=== PATIENT | male | born 1975 | race Caucasian/White ===

== ENCOUNTER 2019-09-20 08:55 | Observation (INO) | payer BC ==
[2019-09-20] MEDS ORDERED: NORMAL SALINE 1000 ML 1,000 ML IV ONE (09:36)
[2019-09-20 09:51] LABS: ABSOLUTE EOSINOPHILS # (AUTO) 0.2 10^3/uL (0.0-0.6); ABSOLUTE LYMPHOCYTES (AUTO) 1.4 10^3/uL (0.5-4.7); ABSOLUTE MONOCYTES (AUTO) 1.1 10^3/uL (0.1-1.4); ABSOLUTE NEUT (AUTO) 4.1 10^3/uL (1.7-8.2); BASOPHILS % (AUTO) 0.3 % (0-2); EOSINOPHILS % (AUTO) 2.9 % (0-6); HEMATOCRIT 46.4 % (37.9-51.0); HEMOGLOBIN 16.2 g/dL (13.5-17.0); LYMPHOCYTES % (AUTO) 20.7 % (13-45); MEAN CORPUSCULAR HEMOGLOBIN 29.8 pg (27.0-33.4); MEAN CORPUSCULAR HGB CONC 34.9 g/dL (32.0-36.0); MEAN CORPUSCULAR VOLUME 85 fl (80-97); MONOCYTES % (AUTO) 15.9 % (3-13); PLATELET COUNT 386 10^3/uL (150-450); RED BLOOD COUNT 5.43 10^6/uL (4.35-5.55); RED CELL DISTRIBUTION WIDTH 12.8 % (11.5-14.0); SEGMENTED NEUTROPHILS % (AUTO) 60.2 % (42-78); TOTAL CELLS COUNTED % (AUTO) 100 %; WHITE BLOOD COUNT 6.9 10^3/uL (4.0-10.5)
--- NOTE | 2019-09-20 10:02 | ER Document Report ---
Entered by ANDRES CARRIZALES SCRIBE 09/20/19 0936 Acting as scribe for:STORM GRISSOM MD ED GI/ - General Mode of Arrival: Ambulatory Information source: Patient - Related Data Home Medications: Lisinopril <STORM GRISSOM - Last Filed: 09/20/19 15:45> <MAINEMERYL Claudia - Last Filed: 09/21/19 01:10> - General Chief Complaint: Abdominal Pain Stated Complaint: ABDOMINAL PAIN Time Seen by Provider: 09/20/19 09:26 Notes: This 43 year old male patient presents to the ED today with complaints of abdominal pain that began x2 days ago. Patient describes the pain as constant and that his abdomen was tender all day. Patient notes that he consumed a little bit of food around 5:00 that evening, but the symptoms worsened, especially while laying down and sitting. Patient states that around midnight, he was nauseous and had x3 vomiting episodes which relieved the pressure, but not the pain. Patient denies eating anything else since onset or using the restroom. Patient reports that he has drank 3 bottles of water prior to arrival. The patient was seen here in 2011 with what looked like a partial small bowel obstruction. He was treated with IV fluids and GI rest, but did not get an NG tube at that time. Past surgical history is significant for a cholecystectomy 13 years ago. (STORM GRISSOM) - Related Data Allergies/Adverse Reactions: No Known Allergies Allergy (Unverified 08/26/12 09:50) Past Medical History - General Information source: Patient - Social History Smoking Status: Current Every Day Smoker Cigarette use (# per day): Yes - 1 ppd Family History: Reviewed & Not Pertinent Patient has suicidal ideation: No Patient has homicidal ideation: No - Past Medical History Cardiac Medical History: Reports: Hx Hypertension, Hx Heart Murmur - as child Past Surgical History: Reports: Hx Cholecystectomy - x13 years ago, Hx Oral Surgery - Immunizations Immunizations up to date: No Hx Diphtheria, Pertussis, Tetanus Vaccination: Yes <STORM GRISSOM - Last Filed: 09/20/19 15:45> Review of Systems - Review of Systems Constitutional: No symptoms reported EENT: No symptoms reported Cardiovascular: No symptoms reported Respiratory: No symptoms reported Gastrointestinal: See HPI, Abdominal pain, Nausea, Vomiting Genitourinary: See HPI, Retention Male Genitourinary: No symptoms reported Musculoskeletal: No symptoms reported Skin: No symptoms reported Hematologic/Lymphatic: No symptoms reported Neurological/Psychological: No symptoms reported -: Yes All other systems reviewed and negative <STORM GRISSOM - Last Filed: 09/20/19 15:45> Physical Exam - General General appearance: Appears well, Alert - HEENT Head: Normocephalic, Atraumatic Eyes: Normal Pupils: PERRL Mucous membranes: Dry - Respiratory Respiratory status: No respiratory distress Chest status: Nontender Breath sounds: Normal Chest palpation: Normal - Cardiovascular Rhythm: Regular Heart sounds: Normal auscultation Murmur: No - Abdominal Inspection: Normal Distension: Distended Bowel sounds: Hypoactive - decreased bowel sounds Tenderness: Tender - epigrastric and hypogastric musculature tenderness with palpation Organomegaly: No organomegaly - Back Back: Normal, Nontender - Extremities General upper extremity: Normal inspection General lower extremity: Normal inspection - Neurological Neuro grossly intact: Yes - Psychological Associated symptoms: Normal affect, Normal mood - Skin Skin Temperature: Warm Skin Moisture: Dry Skin Color: Normal <STORM GRISSOM - Last Filed: 09/20/19 15:45> - Vital signs Vitals: Temp Pulse Resp BP Pulse Ox 97.9 F 101 H 16 145/91 H 98 09/20/19 08:59 09/20/19 08:59 09/20/19 08:59 09/20/19 08:59 09/20/19 08:59 Course - Laboratory Result Diagrams: 09/20/19 09:36 09/20/19 09:36 - Diagnostic Test Radiology reviewed: Image reviewed - Acute abdominal series shows dilated loops of small bowel with multiple air-fluid levels. - Consults Dr. Montalvo Time consulted: 13:40 Consulted provider: other - Request we try letting the patient drink a bottle of magnesium citrate, and then 5 glasses of water, and walking around to see if it will stimulate the bowel. - Transfer of Care Care transferred to following provider: Dr. Owen <STORM GRISSOM - Last Filed: 09/20/19 15:45> - Laboratory Result Diagrams: 09/20/19 09:36 09/20/19 09:36 <MERYL OWEN - Last Filed: 09/21/19 01:10> - Re-evaluation Re-evalutation: 09/20/19 13:50 NG tube suction produced about 600 mL's of a dark thin liquid. Gastroccult testing will be done. 09/20/19 14:19 Gastroccult is positive, the liquid looked like it most likely would be. I discussed this with Dr. Montalvo, based on these findings, the mag citrate challenge will not be done. He will have an oral and IV contrast CT scan of the abdomen and pelvis. (STORM GRISSOM) 09/20/19 09:01 pt reports he was nauseous in radiology, but feels better once hooked back up to LIWS. ordered 1L LR @ 150cc/hr. output from NG once back on suction unchanged from initial output earlier in day after NG initially placed. sgy attending, Dr. Montalvo in OR, but will see as consult, requests adm to hospitalist service. dr. ricci adm to tele. (MERYL OWEN) - Vital Signs Vital signs: Temp Pulse Resp BP Pulse Ox 98.1 F 81 17 139/76 H 93 09/21/19 00:05 09/21/19 00:05 09/21/19 00:05 09/21/19 00:05 09/21/19 00:05 - Laboratory Laboratory results interpreted by me: 09/20/19 09/20/19 09/20/19 09:36 09:36 10:26 Charles % (Auto) 15.9 H Chloride 97 L Glucose 113 H Total Bilirubin 2.0 H Urine Blood SMALL H - Transfer of Care Notes: 09/20/19 15:[address] at 1700, then call Dr. Montalvo with results. (STORM GRISSOM) Discharge <STORM GRISSOM - Last Filed: 09/20/19 15:45> - Discharge Admitting Provider: Renny (Hospitalist) Unit Admitted: Telemetry <MERYL OWEN - Last Filed: 09/21/19 01:10> - Discharge Clinical Impression: Small bowel obstruction Condition: Fair Disposition: ADMITTED INPATIENT Scribe Attestation: 09/20/19 14:47 I personally performed the services described in the documentation, reviewed and edited the documentation which was dictated to the scribe in my presence, and it accurately records my words and actions. (STORM GRISSOM) I personally performed the services described in the documentation, reviewed and edited the documentation which was dictated to the scribe in my presence, and it accurately records my words and actions.
[2019-09-20 10:12] LABS: ALBUMIN 4.5 g/dL (3.5-5.0); ALKALINE PHOSPHATASE 66 U/L (38-126); ANION GAP 14 (5-19); ASPARTATE AMINO TRANSFERASE 21 U/L (17-59); BILIRUBIN,DIRECT 0.2 mg/dL (0.0-0.4); BLOOD UREA NITROGEN 16 mg/dL (7-20); CALCIUM 9.2 mg/dL (8.4-10.2); CARBON DIOXIDE 27 mmol/L (22-30); CHLORIDE 97 mmol/L (98-107); GLUCOSE 113 mg/dL (75-110); POTASSIUM 3.9 mmol/L (3.6-5.0); TOTAL PROTEIN 7.6 g/dL (6.3-8.2)
[2019-09-20] MEDS ORDERED: RINGERS SOLUTION,LACTATED 1,000 ML IV ONE ×2 (10:19→19:43)
--- NOTE | 2019-09-20 10:30 | RADIOLOGY REPORT (SQ) ---
EXAM DESCRIPTION: ACUTE ABDOMEN SERIES COMPLETED DATE/TIME: 09/20/2019 10:00 am REASON FOR STUDY: Suspect bowel obstruction COMPARISON: Abdominal films 08/28/2012, 08/27/2012, 08/26/2012 NUMBER OF VIEWS: Three views. TECHNIQUE: Frontal chest, supine abdomen and upright abdomen radiographic images acquired. LIMITATIONS: None. FINDINGS: CHEST: Lungs clear of infiltrates. Cardiac silhouette size, amalia unremarkable. FREE AIR: None. No abnormal gas collections. BOWEL GAS PATTERN: Air-fluid level in the stomach. Air-fluid levels in dilated small bowel loops in the mid abdomen. Colon decompressed. Findings are worrisome for a distal small bowel obstruction. Ileus is possible but considered less likely. Findings discussed with Dr. Lui in the emergency allyssa m. CALCIFICATIONS: No suspicious calcifications. HARDWARE: None in the abdomen. SOFT TISSUES: No gross mass or suggestion of organomegaly. BONES: No acute fracture. No worrisome bone lesions. OTHER: No other significant finding. IMPRESSION: Air-fluid levels in distended stomach and small bowel worrisome for distal small bowel o bstruction. TECHNICAL DOCUMENTATION: JOB ID: [id number] [employer]- All Rights Reserved Reading location - IP/workstation name: [email or web address]
[2019-09-20 10:39] LABS: APPEARANCE,URINE CLEAR; BILIRUBIN,URINE NEGATIVE (NEGATIVE); COLOR,URINE YELLOW; GLUCOSE, URINE NEGATIVE (NEGATIVE); KETONES,URINE NEGATIVE (NEGATIVE); LEUKOCYTE ESTERASE,URINE NEGATIVE (NEGATIVE); NITRITE,URINE NEGATIVE (NEGATIVE); PROTEIN,URINE NEGATIVE (NEGATIVE); URINE SPECIFIC GRAVITY 1.005; UROBILINOGEN,URINE NEGATIVE mg/dL (<2.0)
[2019-09-20] MEDS ORDERED: ONDANSETRON HCL INJ/PF 4 MG/2 ML SDV ONE (11:08)
[2019-09-20] MEDS ORDERED: ONDANSETRON HCL INJ/PF 4 MG/2 ML SDV IV ONE ×2 (11:11→13:49)
[2019-09-20] MEDS ORDERED: LIDOCAINE 2% VISCOUS SOLN 20 ML UDCUP PO ONE (13:48)
[2019-09-20] MEDS ORDERED: MAG HYDROX/AL HYDROX/SIMETH SUSP 30 ML UDCUP PO ONE (13:48)
[2019-09-20] MEDS: MAGNESIUM CITRATE 296 ML BOTTLE PO ONE ×2 (14:07→14:33)
--- NOTE | 2019-09-20 17:47 | RADIOLOGY REPORT (SQ) ---
EXAM DESCRIPTION: CT ABD/PELVIS WITH IV ORAL COMPLETED DATE/TIME: 09/20/2019 5:22 pm REASON FOR STUDY: Dilated loops sm bowel,multiple A-F levels, heme + COMPARISON: None. TECHNIQUE: CT scan of the abdomen and pelvis performed using helical scanning technique with dynamic intravenous contrast injection. Oral contrast. Images reviewed with lung, soft tissue, and bone win dows. Reconstructed coronal and sagittal MPR images reviewed. Delayed images for evaluation of the ur inary system also acquired. All images stored on PACS. All CT scanners at this facility use dose modulation, iterative reconstruction, and/or weight based d osing when appropriate to reduce radiation dose to as low as reasonably achievable (ALARA). [facility]: Dose Right [facility]: CareDose [facility]: Dose Right [facility]: Teradose 4D [facility]: [employer] CONTRAST TYPE AND DOSE: contrast/concentration: Isovue 350.00 mg/ml; Total Contrast Delivered: 100.0 ml; Total Saline Delivered: 72.0 ml RENAL FUNCTION: BUN 16 creatinine 0.89 RADIATION DOSE: CT Rad equipment meets quality standard of care and radiation dose reduction techniq ues were employed. CTDIvol: 17.4 - 19.2 mGy. DLP: 2370 mGy-cm.. LIMITATIONS: None. FINDINGS: LOWER CHEST: No significant findings. No nodules or infiltrates. LIVER: Normal size. No masses. No dilated ducts. SPLEEN: Normal size. No focal lesions. PANCREAS: No masses. No significant calcifications. No adjacent inflammation or peripancreatic fluid collections. Pancreatic duct not dilated. GALLBLADDER: Surgically absent. ADRENAL GLANDS: No significant masses or asymmetry. RIGHT KIDNEY AND URETER: No solid masses. No significant calcifications. No hydronephrosis or hyd roureter. LEFT KIDNEY AND URETER: No solid masses. No significant calcifications. No hydronephrosis or hydr oureter. AORTA AND VESSELS: No aneurysm. No dissection. Renal arteries, SMA, celiac without stenosis. RETROPERITONEUM: No retroperitoneal adenopathy, hemorrhage or masses. BOWEL AND PERITONEAL CAVITY: Mildly dilated loops of small bowel are present. The distal ileum is of normal caliber. Mild diverticulosis in the descending colon. APPENDIX: Normal. PELVIS: Cannot exclude a small mucosal filling defect in the left in the bladder. See image 97 serie s 5. ABDOMINAL WALL: No masses. No hernias. BONES: No significant or acute findings. OTHER: No other significant finding. IMPRESSION: Distal small bowel obstruction. Mild diverticulosis coli. Cannot exclude a small bladd er wall mass on the left. TECHNICAL DOCUMENTATION: JOB ID: [id number] Quality ID # [id number]: Final reports with documentation of one or more dose reduction techniques (e.g., Au tomated exposure control, adjustment of the mA and/or kV according to patient size, use of iterative reconstruction technique) 2010 [employer]- All Rights Reserved Reading location - IP/workstation name: [email or web address]
[2019-09-20] MEDS ORDERED: ONDANSETRON HCL INJ/PF 4 MG/2 ML SDV IV PRN (21:26)
[2019-09-20] MEDS ORDERED: ACETAMINOPHEN 650 MG SUPP.RECT PR PRN (21:26)
[2019-09-20] MEDS ORDERED: IPRATROPIUM/ALBUTEROL 0.5-2.5 MG/3 ML AMPUL NEB PRN (21:26)
[2019-09-20] MEDS ORDERED: NORMAL SALINE 1000 ML 1,000 ML IV SCH (21:30)
[2019-09-20] MEDS: HEPARIN SOD (PORCINE) 5,000 UNIT/ML 1 ML VIAL SUBCUT SCH (23:21)
--- NOTE | 2019-09-20 23:23 | PDOC CONSULTATION ---
Consultation Consult Date: 09/20/19 Provider Consulted: MITCHELL FLORIAN History of Present Illness Admission Date/PCP: 09/20/19 21:28 Patient complains of: Abdominal distention, pain, and nausea vomiting History of Present Illness: ANTIONETTE BERNABE JR is a 43 year old male Patient is a morbidly obese 43-year-old male with a 3-day history of abdominal distention, nausea vomiting, abdominal pain. He presented to the emergency room due to worsening of the above symptoms. He underwent a CT scan abdomen pelvis with IV and oral contrast which demonstrated possible small bowel mechanical obstruction. However, since the test has been done the patient reports recurrence of flatus and a small amount of liquid stools. He feels much better, his abdomen is less distended and the left knee is nontender. The patient reports history of similar symptoms about 7 years ago when he presented to the emergency room and was treated conservatively with resolution of the symptoms. Past Medical History Cardiac Medical History: Reports: Hypertension, Heart Murmur - as child Denies: Myocardial Infarction Pulmonary Medical History: Denies: Asthma, Tuberculosis Neurological Medical History: Denies: Seizures GI Medical History: Denies: Hepatitis, Hiatal Hernia Hematology: Denies: Anemia, Sickle Cell Disease Past Surgical History Past Surgical History: Reports: Cholecystectomy - x13 years ago Denies: Pacemaker Social History Smoking Status: Current Every Day Smoker Hx Recreational Drug Use: No Hx Prescription Drug Abuse: No Family History Family History: Reviewed & Not Pertinent Parental Family History Reviewed: No Children Family History Reviewed: No Sibling(s) Family History Reviewed.: No Medication/Allergy Home Medications: Lisinopril [Prinivil 10 mg Tablet] 10 mg PO DAILY 09/20/19 Allergies/Adverse Reactions: No Known Allergies Allergy (Unverified 08/26/12 09:50) Physical Exam Vital Signs: Temp Pulse Resp BP Pulse Ox 97.9 F 101 H 15 110/75 93 09/20/19 09:18 09/20/19 09:18 09/20/19 19:01 09/20/19 19:00 09/20/19 19:01 Intake & Output 09/19/19 09/20/19 09/21/19 06:59 06:59 06:59 Intake Total 1999 Balance 1999 Weight 104.8 kg General appearance: PRESENT: no acute distress, morbidly obese Head exam: PRESENT: atraumatic Eye exam: PRESENT: EOMI Neck exam: PRESENT: full ROM Respiratory exam: PRESENT: clear to auscultation howie Cardiovascular exam: PRESENT: RRR GI/Abdominal exam: PRESENT: normal bowel sounds, soft, other - Not distended and not tender Rectal exam: PRESENT: deferred Extremities exam: PRESENT: full ROM Musculoskeletal exam: PRESENT: ambulatory, full ROM Neurological exam: PRESENT: alert, oriented to time, oriented to situation Psychiatric exam: PRESENT: appropriate affect Skin exam: PRESENT: warm Results Laboratory Results: 09/20/19 09:36 09/20/19 09:36 09/20/19 09/20/19 09/20/19 09:36 09:36 10:26 WBC 6.9 RBC 5.43 Hgb 16.2 Hct 46.4 MCV 85 MCH 29.8 MCHC 34.9 RDW 12.8 Plt Count 386 Seg Neutrophils % 60.2 Sodium 137.5 Potassium 3.9 Chloride 97 L Carbon Dioxide 27 Anion Gap 14 BUN 16 Creatinine 0.89 Est GFR ( Amer) > 60 Glucose 113 H Calcium 9.2 Total Bilirubin 2.0 H AST 21 Alkaline Phosphatase 66 Total Protein 7.6 Albumin 4.5 Lipase 65.7 Urine Color YELLOW Urine Appearance CLEAR Urine pH 7.0 Ur Specific [place] 1.005 Urine Protein NEGATIVE Urine Glucose (UA) NEGATIVE Urine Ketones NEGATIVE Urine Blood SMALL H Urine Nitrite NEGATIVE Ur Leukocyte Esterase NEGATIVE Urine WBC (Auto) 1 Urine RBC (Auto) 0 Impressions: Acute Abdomen Series 09/20/19 09:36 IMPRESSION: Air-fluid levels in distended stomach and small bowel worrisome for distal small bowel obstruction. Abdomen/Pelvis CT 09/20/19 14:18 IMPRESSION: Distal small bowel obstruction. Mild diverticulosis coli. Cannot exclude a small bladder wall mass on the left. Assessment & Plan - Diagnosis (1) partial mechanical small bowel obstructi Is this a current diagnosis for this admission?: Yes - Plan Summary Plan Summary: Assessment: 43-year-old obese male with a 3-day history abdominal pain, increased abdominal girth, nausea, vomiting CT scan of the abdomen pelvis with IV / oral contrast is a significant for a distal small bowel obstruction However, the CT scan of the abdomen pelvis also demonstrates the presence of stool and gas in the colon The patient reports resolution of most of his symptoms with flatus and liquid stools at this time following the CT scan of the abdomen pelvis Physical exam of the patient reveals a soft abdomen not distended, and not tender with normal bowel sounds Plan: Admit as per hospitalist service N.p.o. NG tube to low continuous suction Fluids Abdominal x-ray obstructive series in a.m. Clamp NG tube at 6 AM x4 hours If the symptoms are resolved, the nasogastric tube output is minimal following clamping, and the abdominal x-rays demonstrate improvement of the symptoms, the patient's diet can be advanced and he can be discharged to home
[2019-09-20] MEDS ORDERED: MAGNESIUM CITRATE 296 ML BOTTLE NG ONE (23:28)
[2019-09-21] MEDS ORDERED: INFLUENZA QUAD (6MOS+) 2019-20 VAC 0.5 ML SYR IM ONE (00:34)
[2019-09-21 00:38] VITALS: BP 139/76
--- NOTE | 2019-09-21 05:30 | PDOC H&P ---
History of Present Illness Admission Date/PCP: 09/20/19 21:28 Patient complains of: Abdominal pain and nausea History of Present Illness: ANTIONETTE BERNABE JR is a 43 year old male with past medical history of small bowel obstruction resolving spontaneously 7 years ago. Returns with abdominal pain and distention of the last 3 days worsening with nausea and vomiting prompting evaluation in the emergency department where he is found to have a small bowel obstruction without signs of decompensation. NG tube is placed resulting in 500 mL of gastric content. He is comfortable with IV antiemetics and referred to the hospitalist for admission. He denies recent change in medication regiment is otherwise felt well Past Medical History Cardiac Medical History: Reports: Hypertension, Heart Murmur - as child Denies: Myocardial Infarction Pulmonary Medical History: Denies: Asthma, Tuberculosis Neurological Medical History: Denies: Seizures GI Medical History: Denies: Hepatitis, Hiatal Hernia Psychiatric Medical History: Reports: Tobacco Dependency Hematology: Denies: Anemia, Sickle Cell Disease Past Surgical History Past Surgical History: Reports: Cholecystectomy - x13 years ago Denies: Pacemaker Social History Information Source: Patient Smoking Status: Current Every Day Smoker Cigarettes Packs Per Day: 1 Number of Years Smokin Last Time Smoked: 09/10/2019 Frequency of Alcohol Use: Rare Hx Recreational Drug Use: No Hx Prescription Drug Abuse: No - Advance Directive Resuscitation Status: Full Code Family History Family History: Hypertension Parental Family History Reviewed: Yes Children Family History Reviewed: Yes Sibling(s) Family History Reviewed.: Yes Medication/Allergy Home Medications: Lisinopril [Prinivil 10 mg Tablet] 10 mg PO DAILY 09/20/19 Allergies/Adverse Reactions: No Known Allergies Allergy (Unverified 08/26/12 09:50) Review of Systems Constitutional: ABSENT: chills, fever(s), headache(s), weight gain, weight loss Eyes: ABSENT: visual disturbances Ears: ABSENT: hearing changes Cardiovascular: ABSENT: chest pain, dyspnea on exertion, edema, orthropnea, palpitations Respiratory: ABSENT: cough, hemoptysis Gastrointestinal: ABSENT: abdominal pain, constipation, diarrhea, hematemesis, hematochezia, nausea, vomiting Genitourinary: ABSENT: dysuria, hematuria Musculoskeletal: ABSENT: joint swelling Integumentary: ABSENT: rash, wounds Neurological: ABSENT: abnormal gait, abnormal speech, confusion, dizziness, focal weakness, syncope Psychiatric: ABSENT: anxiety, depression, homidical ideation, suicidal ideation Endocrine: ABSENT: cold intolerance, heat intolerance, polydipsia, polyuria Hematologic/Lymphatic: ABSENT: easy bleeding, easy bruising Physical Exam Vital Signs: Temp Pulse Resp BP Pulse Ox 98.1 F 83 17 139/76 H 93 09/21/19 00:05 09/21/19 02:00 09/21/19 00:05 09/21/19 00:05 09/21/19 00:05 Intake & Output 09/19/19 09/20/19 09/21/19 11:59 11:59 11:59 Intake Total 1999 999 Balance 1999 1000 Weight 104.8 kg 104.3 kg General appearance: PRESENT: cooperative, mild distress, well-developed, well- nourished Head exam: PRESENT: atraumatic, normocephalic Eye exam: PRESENT: conjunctiva pink, EOMI, PERRLA. ABSENT: scleral icterus Ear exam: PRESENT: normal external ear exam Mouth exam: PRESENT: moist, tongue midline Neck exam: ABSENT: carotid bruit, JVD, lymphadenopathy, thyromegaly Respiratory exam: PRESENT: clear to auscultation howie. ABSENT: rales, rhonchi, wheezes Cardiovascular exam: PRESENT: RRR. ABSENT: diastolic murmur, rubs, systolic murmur Pulses: PRESENT: normal dorsalis pedis pul Vascular exam: PRESENT: normal capillary refill GI/Abdominal exam: PRESENT: diminished bowel sounds, distended, firm, hypoactive bowel sounds, soft. ABSENT: guarding, mass, normal bowel sounds, organolmegaly, rebound, tenderness Rectal exam: PRESENT: deferred Extremities exam: PRESENT: full ROM. ABSENT: calf tenderness, clubbing, pedal edema Neurological exam: PRESENT: alert, awake, oriented to person, oriented to place, oriented to time, oriented to situation, CN II-XII grossly intact. ABSENT: motor sensory deficit Psychiatric exam: PRESENT: appropriate affect, normal mood. ABSENT: homicidal ideation, suicidal ideation Skin exam: PRESENT: dry, intact, warm. ABSENT: cyanosis, rash Results Laboratory Results: 09/20/19 09:36 09/20/19 09:36 09/20/19 09/20/19 09/20/19 09:36 09:36 10:26 WBC 6.9 RBC 5.43 Hgb 16.2 Hct 46.4 MCV 85 MCH 29.8 MCHC 34.9 RDW 12.8 Plt Count 386 Seg Neutrophils % 60.2 Sodium 137.5 Potassium 3.9 Chloride 97 L Carbon Dioxide 27 Anion Gap 14 BUN 16 Creatinine 0.89 Est GFR ( Amer) > 60 Glucose 113 H Calcium 9.2 Total Bilirubin 2.0 H AST 21 Alkaline Phosphatase 66 Total Protein 7.6 Albumin 4.5 Lipase 65.7 Urine Color YELLOW Urine Appearance CLEAR Urine pH 7.0 Ur Specific [place] 1.005 Urine Protein NEGATIVE Urine Glucose (UA) NEGATIVE Urine Ketones NEGATIVE Urine Blood SMALL H Urine Nitrite NEGATIVE Ur Leukocyte Esterase NEGATIVE Urine WBC (Auto) 1 Urine RBC (Auto) 0 Impressions: Acute Abdomen Series 09/20/19 09:36 IMPRESSION: Air-fluid levels in distended stomach and small bowel worrisome for distal small bowel obstruction. Abdomen/Pelvis CT 09/20/19 14:18 IMPRESSION: Distal small bowel obstruction. Mild diverticulosis coli. Cannot exclude a small bladder wall mass on the left. Assessment and Plan - Diagnosis (1) Small bowel obstruction Is this a current diagnosis for this admission?: Yes Plan: NG decompression, symptomatic management, follow-up surgical consult (2) Abdominal pain Is this a current diagnosis for this admission?: Yes Plan: Secondary to #1, NG decompression, Toradol as needed - Time Time Spent with patient: 25-34 minutes - Inpatient Certification Medical Necessity: Need Close Monitoring Due to Risk of Patient Decompensation
[2019-09-21] MEDS: HEPARIN SOD (PORCINE) 5,000 UNIT/ML 1 ML VIAL SUBCUT SCH (06:01)
[2019-09-21 06:13] LABS: ALBUMIN 3.8 g/dL (3.5-5.0); ALKALINE PHOSPHATASE 58 U/L (38-126); ANION GAP 10 (5-19); ASPARTATE AMINO TRANSFERASE 18 U/L (17-59); BILIRUBIN,DIRECT 0.2 mg/dL (0.0-0.4); BILIRUBIN,TOTAL 1.4 mg/dL (0.2-1.3); BLOOD UREA NITROGEN 12 mg/dL (7-20); CALCIUM 8.5 mg/dL (8.4-10.2); CARBON DIOXIDE 26 mmol/L (22-30); CHLORIDE 101 mmol/L (98-107); GLUCOSE 83 mg/dL (75-110); POTASSIUM 4.3 mmol/L (3.6-5.0); TOTAL PROTEIN 6.7 g/dL (6.3-8.2)
--- NOTE | 2019-09-21 08:59 | RADIOLOGY REPORT (SQ) ---
EXAM DESCRIPTION: ACUTE ABDOMEN SERIES COMPLETED DATE/TIME: 09/21/2019 8:43 am REASON FOR STUDY: f/u CT scan A/P with partial SBO COMPARISON: 09/20/2019 NUMBER OF VIEWS: Three views. TECHNIQUE: Frontal chest, supine abdomen and upright/decubitus abdomen radiographic images acquired. LIMITATIONS: None. FINDINGS: CHEST: Lungs clear of infiltrates. FREE AIR: None. No abnormal gas collections. BOWEL GAS PATTERN: Persistent dilated small bowel with scattered air-fluid levels. Findings remain s uspicious for distal small bowel obstruction. CALCIFICATIONS: No suspicious calcifications. HARDWARE: There are clips in the right upper quadrant consistent with prior cholecystectomy. SOFT TISSUES: No gross mass or suggestion of organomegaly. BONES: No acute fracture. No worrisome bone lesions. OTHER: No other significant finding. IMPRESSION: Persistent dilated small bowel with scattered air-fluid levels. Findings remain suspici ous for distal small bowel obstruction. TECHNICAL DOCUMENTATION: JOB ID: [id number] [employer]- All Rights Reserved Reading location - IP/workstation name: [email or web address]
--- NOTE | 2019-09-21 12:20 | PDOC PROGRESS REPORT ---
Subjective Progress Note for:: 09/21/19 Reason For Visit: SBO Physical Exam Vital Signs: Temp Pulse Resp BP Pulse Ox 98.1 F 83 17 139/76 H 93 09/21/19 00:05 09/21/19 02:00 09/21/19 00:05 09/21/19 00:05 09/21/19 00:05 Intake & Output 09/20/19 09/21/19 09/22/19 06:59 06:59 06:59 Intake Total 3000 Balance 3000 Weight 104.3 kg General appearance: PRESENT: no acute distress GI/Abdominal exam: PRESENT: normal bowel sounds, soft Results Laboratory Results: 09/20/19 09:36 09/21/19 04:19 09/21/19 04:19 Sodium 137.3 Potassium 4.3 Chloride 101 Carbon Dioxide 26 Anion Gap 10 BUN 12 Creatinine 0.80 Est GFR ( Amer) > 60 Glucose 83 Calcium 8.5 Total Bilirubin 1.4 H AST 18 Alkaline Phosphatase 58 Total Protein 6.7 Albumin 3.8 Impressions: Abdomen/Pelvis CT 09/20/19 14:18 IMPRESSION: Distal small bowel obstruction. Mild diverticulosis coli. Cannot exclude a small bladder wall mass on the left. Acute Abdomen Series 09/21/19 06:00 IMPRESSION: Persistent dilated small bowel with scattered air-fluid levels. Findings remain suspicious for distal small bowel obstruction. Assessment & Plan - Diagnosis (1) partial mechanical small bowel obstructi Is this a current diagnosis for this admission?: Yes - Time Time Spent with patient: 15-24 minutes - Plan Summary Plan Summary: Assessment: resolved partial mechanical small bowel obstruction most likely due to constipation Abdomen soft Xray abdomen still shows a few loops of bowel distended with AF levels Plan: advance diet to regular ok to discharge to home by General Surgery viewpoint patient counseled about bowel hygiene, high fiber diet, oral fluid intake and increased physical activities Recommend to use Miralax OTC prn I will sign off. Please, call me with questions
--- NOTE | 2019-09-21 13:34 | PDOC DISCHARGE SUMMARY ---
Impression - Admit/DC Date/PCP Admission Date/Primary Care Provider: 09/20/19 21:28 Discharge Date: 09/21/19 - Discharge Diagnosis (1) Hypertension Is this a current diagnosis for this admission?: Yes (2) Abdominal pain Is this a current diagnosis for this admission?: Yes (3) partial mechanical small bowel obstructi Is this a current diagnosis for this admission?: Yes - Assessment Summary: 09/21/2019 Patient was admitted to the hospital on 1223 through the emergency room for abdo gilberto pain and nausea. Patient states that for the last 3 days he has had these symptoms. X-rays reveal a partial mechanical small bowel obstruction. Patient was seen by general surgery and felt that conservative therapy would be indicated. G-tube was placed in the emergency room and 500 mL's of gastric content was retrieved They on 122 patient was seen by general surgery who felt that the partial obstruction was mostly resolved. Patient was passing gas as well as light stool. She had no vomiting and was tolerating clear liquids. Patient had very little pain. Patient was instructed to go home with good bowel hygiene, high-fiber diet, oral fluid intake and increase physical activities as tolerated. MiraLAX to use as needed. Advance diet as tolerated. Acute abdominal series was performed this morning. Surgery reviewed these x- rays and felt that it was safe for the patient be discharged home. Patient was asking to be discharged home. Patient is medically stable - Additional Information Resuscitation Status: Full Code Discharge Diet: Other (Comments) - Soft diet and advance as tolerated gradually Discharge Activity: Activity As Tolerated Home Medications: Lisinopril [Prinivil 10 mg Tablet] 10 mg PO DAILY 09/20/19 History of Present Illiness History of Present Illness: ANTIONETTE BERNABE JR is a 43 year old male Physical Exam Vital Signs: Temp Pulse Resp BP Pulse Ox 98.1 F 80 17 139/76 H 93 09/21/19 12:50 09/21/19 12:50 09/21/19 12:50 09/21/19 12:50 09/21/19 12:50 Intake & Output 09/20/19 09/21/19 09/22/19 06:59 06:59 06:59 Intake Total 3000 Balance 3000 Weight 104.3 kg Results Laboratory Results: WBC 6.9 10^3/uL (4.0-10.5) 09/20/19 09:36 RBC 5.43 10^6/uL (4.35-5.55) 09/20/19 09:36 Hgb 16.2 g/dL (13.5-17.0) 09/20/19 09:36 Hct 46.4 % (37.9-51.0) 09/20/19 09:36 MCV 85 fl (80-97) 09/20/19 09:36 MCH 29.8 pg (27.0-33.4) 09/20/19 09:36 MCHC 34.9 g/dL (32.0-36.0) 09/20/19 09:36 RDW 12.8 % (11.5-14.0) 09/20/19 09:36 Plt Count 386 10^3/uL (150-450) 09/20/19 09:36 Lymph % (Auto) 20.7 % (13-45) 09/20/19 09:36 [place] % (Auto) 15.9 % (3-13) H 09/20/19 09:36 Eos % (Auto) 2.9 % (0-6) 09/20/19 09:36 Baso % (Auto) 0.3 % (0-2) 09/20/19 09:36 Absolute Neuts (auto) 4.1 10^3/uL (1.7-8.2) 09/20/19 09:36 Absolute Lymphs (auto) 1.4 10^3/uL (0.5-4.7) 09/20/19 09:36 Absolute Monos (auto) 1.1 10^3/uL (0.1-1.4) 09/20/19 09:36 Absolute Eos (auto) 0.2 10^3/uL (0.0-0.6) 09/20/19 09:36 Absolute Basos (auto) 0.0 10^3/uL (0.0-0.2) 09/20/19 09:36 Seg Neutrophils % 60.2 % (42-78) 09/20/19 09:36 Sodium 137.3 mmol/L (137-145) 09/21/19 04:19 Potassium 4.3 mmol/L (3.6-5.0) 09/21/19 04:19 Chloride 101 mmol/L (98-107) 09/21/19 04:19 Carbon Dioxide 26 mmol/L (22-30) 09/21/19 04:19 Anion Gap 10 (5-19) 09/21/19 04:19 BUN 12 mg/dL (7-20) 09/21/19 04:19 Creatinine 0.80 mg/dL (0.52-1.25) 09/21/19 04:19 Est GFR ( Amer) > 60 (>60) 09/21/19 04:19 Est GFR (MDRD) Non-Af > 60 (>60) 09/21/19 04:19 Glucose 83 mg/dL (75-110) 09/21/19 04:19 Calcium 8.5 mg/dL (8.4-10.2) 09/21/19 04:19 Total Bilirubin 1.4 mg/dL (0.2-1.3) H 09/21/19 04:19 Direct Bilirubin 0.2 mg/dL (0.0-0.4) 09/21/19 04:19 Neonat Total Bilirubin Not Reportable 09/21/19 04:19 Neonat Direct Bilirubin Not Reportable 09/21/19 04:19 Neonat Indirect Bili Not Reportable 09/21/19 04:19 AST 18 U/L (17-59) 09/21/19 04:19 ALT 22 U/L (<50) 09/21/19 04:19 Alkaline Phosphatase 58 U/L (38-126) 09/21/19 04:19 Total Protein 6.7 g/dL (6.3-8.2) 09/21/19 04:19 Albumin 3.8 g/dL (3.5-5.0) 09/21/19 04:19 Lipase 65.7 U/L (23-300) 09/20/19 09:36 Urine Color YELLOW 09/20/19 10:26 Urine Appearance CLEAR 09/20/19 10:26 Urine pH 7.0 (5.0-9.0) 09/20/19 10:26 Ur Specific [place] 1.005 09/20/19 10:26 Urine Protein NEGATIVE mg/dL (NEGATIVE) 09/20/19 10:26 Urine Glucose (UA) NEGATIVE mg/dL (NEGATIVE) 09/20/19 10:26 Urine Ketones NEGATIVE mg/dL (NEGATIVE) 09/20/19 10:26 Urine Blood SMALL (NEGATIVE) H 09/20/19 10:26 Urine Nitrite NEGATIVE (NEGATIVE) 09/20/19 10:26 Urine Bilirubin NEGATIVE (NEGATIVE) 09/20/19 10:26 Urine Urobilinogen NEGATIVE mg/dL (<2.0) 09/20/19 10:26 Ur Leukocyte Esterase NEGATIVE (NEGATIVE) 09/20/19 10:26 Urine WBC (Auto) 1 /HPF 09/20/19 10:26 Urine RBC (Auto) 0 /HPF 09/20/19 10:26 Squamous Epi Cells Auto 1 /HPF 09/20/19 10:26 Urine Mucus (Auto) RARE /LPF 09/20/19 10:26 Urine Ascorbic Acid NEGATIVE (NEGATIVE) 09/20/19 10:26 Impressions: Acute Abdomen Series 09/20/19 09:36 IMPRESSION: Air-fluid levels in distended stomach and small bowel worrisome for distal small bowel obstruction. Abdomen/Pelvis CT 09/20/19 14:18 IMPRESSION: Distal small bowel obstruction. Mild diverticulosis coli. Cannot exclude a small bladder wall mass on the left. Acute Abdomen Series 09/21/19 06:00 IMPRESSION: Persistent dilated small bowel with scattered air-fluid levels. Findings remain suspicious for distal small bowel obstruction. Stroke Is this a Stroke Patient?: No Acute Heart Failure - Is this a Heart Failure Patient?: No
== END 2019-09-21 13:10 | disposition home or self-care (01) ==
LOC: ER 08:55 → EH 21:28 → INTOOBSV 21:28 → 4N 09-21
PROVIDERS: ADMIT Internal Medicine; ATTEND Internal Medicine
DX: K56.690 Other partial intestinal obstruction (principal); I10 Essential (primary) hypertension; E66.01 Morbid (severe) obesity due to excess calories; F17.210 Nicotine dependence, cigarettes, uncomplicated; K57.30 Diverticulosis of large intestine without perforation or abscess without bleeding; Z90.49 Acquired absence of other specified parts of digestive tract; Z79.899 Other long term (current) drug therapy
CPT/HCPCS: 96376; 99285; 96361; 96374; 36415 ×2; 83690; 85025; 80053 ×2; 81001; 74022 ×2; 74177; G0378 ×2; L8000; J1644; J3490 ×2; J2405; J7030; J7120

== ENCOUNTER 2020-09-21 17:28 | Emergency (ER) | payer BC ==
[2020-09-21] MEDS ORDERED: ONDANSETRON HCL INJ/PF 4 MG/2 ML SDV IV ONE ×2 (17:40→20:15)
[2020-09-21] MEDS ORDERED: MORPHINE SULFATE 10 MG/ML INJ IV ONE ×2 (17:40→21:00)
[2020-09-21] MEDS ORDERED: NORMAL SALINE 1000 ML 1,000 ML IV ONE (17:40)
--- NOTE | 2020-09-21 17:44 | ER Document Report ---
ED Medical Screen (RME) - General Chief Complaint: Abdominal Pain Stated Complaint: ABDOMINAL PAIN Time Seen by Provider: 09/21/20 17:33 TRAVEL OUTSIDE OF THE [place] IN LAST 30 DAYS: No - HPI Notes: 09/21/20 17:41 44-year-old male presents to the emergency room today for complaints of left lower quadrant abdominal pain that started yesterday. Reports worse with standing, better with sitting or resting. Reports pain is 4 out of 5, stabbing pain in left lower quadrant that occurs intermittently. Patient states he had a bowel obstruction 12 years ago and his last bowel obstruction was last year, they gave him mag citrate and he was able to be discharged home. Patient felt like he was getting a little backed up, gave himself magnesium citrate, he states he did "clean himself out", reports his last BM today. Reports this feels "very similar to my last bowel obstruction". Patient denies any history of diverticulosis. Reports his last colonoscopy was 10 years ago. Denies any melena. Denies any chest pain, shortness of breath, nausea or vomiting. Reports he has had low-grade fevers roughly around 99-100 today. Denies any positive Covid testing or Covid exposure I have greeted and performed a rapid initial assessment of this patient. A comprehensive ED assessment and evaluation of the patient, analysis of test results and completion of the medical decision making process will be conducted by additional ED providers. PHYSICAL EXAMINATION: GENERAL: Well-appearing, well-nourished and in no acute distress. HEAD: Atraumatic, normocephalic. CV: s1, s2 regular LUNGS: No respiratory distress abd: LLQ abd pain on palpation. no cva tenderness bilaterally Musculoskeletal: Normal range of motion NEUROLOGICAL: Normal speech, normal gait. SKIN: Warm, Dry, normal turgor, no rashes or lesions noted. The patient was evaluated during a global COVID-19 pandemic and that diagnosis was suspected/considered upon their initial presentation. Their evaluation, treatment and testing was consistent with current guidelines for patients who present with complaints or symptoms and may be related to COVID-19. - Related Data Allergies/Adverse Reactions: No Known Allergies Allergy (Verified 09/21/20 17:41) Home Medications: lisninopril 10mg daily Past Medical History - Social History Chew tobacco use (# tins/day): No Frequency of alcohol use: Rare Drug Abuse: None - Past Medical History Cardiac Medical History: Reports: Hx Hypertension, Hx Heart Murmur - as child Denies: Hx Heart Attack Pulmonary Medical History: Denies: Hx Asthma, Hx Tuberculosis Neurological Medical History: Denies: Hx Cerebrovascular Accident, Hx Seizures GI Medical History: Denies: Hx Hepatitis, Hx Hiatal Hernia, Hx Ulcer Infectious Medical History: Denies: Hx Hepatitis Past Surgical History: Reports: Hx Cholecystectomy - x13 years ago, Hx Oral Surgery. Denies: Hx Open Heart Surgery, Hx Pacemaker - Immunizations Immunizations up to date: No Hx Diphtheria, Pertussis, Tetanus Vaccination: Yes Physical Exam - Vital signs Vitals: Temp Pulse Resp BP Pulse Ox 99.0 F 104 H 16 150/92 H 98 09/21/20 17:30 09/21/20 17:30 09/21/20 17:30 09/21/20 17:30 09/21/20 17:30 Course - Vital Signs Vital signs: Temp Pulse Resp BP Pulse Ox 99.0 F 104 H 16 150/92 H 98 09/21/20 17:30 09/21/20 17:30 09/21/20 17:30 09/21/20 17:30 09/21/20 17:30
[2020-09-21 18:05] LABS: ABSOLUTE EOSINOPHILS # (AUTO) 0.1 10^3/uL (0.0-0.6); ABSOLUTE LYMPHOCYTES (AUTO) 1.6 10^3/uL (0.5-4.7); ABSOLUTE MONOCYTES (AUTO) 0.8 10^3/uL (0.1-1.4); ABSOLUTE NEUT (AUTO) 5.9 10^3/uL (1.7-8.2); BASOPHILS % (AUTO) 0.3 % (0-2); EOSINOPHILS % (AUTO) 1.1 % (0-6); HEMATOCRIT 45.7 % (37.9-51.0); LYMPHOCYTES % (AUTO) 18.6 % (13-45); MEAN CORPUSCULAR HEMOGLOBIN 29.9 pg (27.0-33.4); MEAN CORPUSCULAR HGB CONC 34.9 g/dL (32.0-36.0); MEAN CORPUSCULAR VOLUME 86 fl (80-97); MONOCYTES % (AUTO) 9.9 % (3-13); PLATELET COUNT 394 10^3/uL (150-450); RED BLOOD COUNT 5.33 10^6/uL (4.35-5.55); RED CELL DISTRIBUTION WIDTH 13.2 % (11.5-14.0); SEGMENTED NEUTROPHILS % (AUTO) 70.1 % (42-78); TOTAL CELLS COUNTED % (AUTO) 100 %; WHITE BLOOD COUNT 8.4 10^3/uL (4.0-10.5)
[2020-09-21 18:07] LABS: APPEARANCE,URINE CLEAR; BILIRUBIN,URINE NEGATIVE (NEGATIVE); COLOR,URINE YELLOW; GLUCOSE, URINE NEGATIVE (NEGATIVE); KETONES,URINE TRACE mg/dL (NEGATIVE); LEUKOCYTE ESTERASE,URINE NEGATIVE (NEGATIVE); NITRITE,URINE NEGATIVE (NEGATIVE); PROTEIN,URINE NEGATIVE (NEGATIVE); URINE SPECIFIC GRAVITY 1.013; UROBILINOGEN,URINE NEGATIVE mg/dL (<2.0)
[2020-09-21 18:24] LABS: ALBUMIN 4.7 g/dL (3.5-5.0); ALKALINE PHOSPHATASE 81 U/L (38-126); ANION GAP 9 (5-19); ASPARTATE AMINO TRANSFERASE 26 U/L (17-59); BILIRUBIN,TOTAL 1.4 mg/dL (0.2-1.3); BLOOD UREA NITROGEN 10 mg/dL (7-20); CALCIUM 9.3 mg/dL (8.4-10.2); CARBON DIOXIDE 26 mmol/L (22-30); CHLORIDE 103 mmol/L (98-107); GLUCOSE 97 mg/dL (75-110); POTASSIUM 4.4 mmol/L (3.6-5.0); TOTAL PROTEIN 7.8 g/dL (6.3-8.2)
--- NOTE | 2020-09-21 21:53 | RADIOLOGY REPORT (SQ) ---
EXAM DESCRIPTION: CT ABDOMEN PELVIS WITH IV CONTRAST COMPLETED DATE/TME: 09/21/2020 21:39 CLINICAL HISTORY: 44 years, Male, LLQ abd pain, hx of bowel obstruction x 2 TECHNIQUE: Contiguous axial CT images of the abdomen and pelvis. Intravenous contrast: Present. Oral contrast: Present. DLP 2143 mGy-cm. This exam was performed according to our departmental dose-optimization program, which includes automated exposure control, adjustment of the mA and/or kV according to patient size and/or use of iterative reconstruction technique. COMPARISON: 09/20/2019. FINDINGS: Lower chest: Partially imaged. Lung bases: Unremarkable. Cardiac apex: Unremarkable. Solid abdominal viscera: Liver: Fatty liver. Gallbladder: Cholecystectomy. Pancreas: Unremarkable. Spleen: Unremarkable. Adrenal glands: Unremarkable. Right kidney: No hydronephrosis. Left kidney: No hydronephrosis. Urinary bladder: Unremarkable. Abdominal aorta: Unremarkable. Peritoneal: Free fluid: None. Free air: None. Other: No pathologic sized lymph nodes in the upper abdomen. Bowel: Stomach: Unremarkable. Small bowel: Unremarkable. Appendix: Unremarkable. Colon: Acute diverticulitis of the distal descending colon with mild surrounding inflammatory changes and fluid. No evidence of a perforation or abscess/phlegmon formation. Rectum: Unremarkable. Prostate: Unremarkable. Bones: Unremarkable. IMPRESSION: Acute diverticulitis of the distal descending colon.
--- NOTE | 2020-09-22 00:52 | ER Document Report ---
ED GI/ - General Chief Complaint: Abdominal Pain Stated Complaint: ABDOMINAL PAIN Time Seen by Provider: 09/21/20 17:33 Primary Care Provider: [facility] [Provider Group] - Follow up as needed TRAVEL OUTSIDE OF THE [place] IN LAST 30 DAYS: No - HPI Notes: Patient is a 44-year-old male with a hx of SBO and HTN who presents with left lower quadrant abdominal pain that began last night. Patient describes the pain as sharp that is exacerbated by movement. He reports low grade fever of 99 F. He denies nausea, vomiting, diarrhea, hematochezia, melena, chest pain, and shortness of breath. Patient has not taken any medication for relief. - Related Data Allergies/Adverse Reactions: No Known Allergies Allergy (Verified 09/21/20 17:41) Home Medications: lisninopril 10mg daily Past Medical History - General Information source: Patient - Social History Smoking Status: Current Every Day Smoker Chew tobacco use (# tins/day): No Frequency of alcohol use: Rare Drug Abuse: None Family History: Hypertension Patient has homicidal ideation: No - Past Medical History Cardiac Medical History: Reports: Hx Hypertension, Hx Heart Murmur - as child Denies: Hx Heart Attack Pulmonary Medical History: Denies: Hx Asthma, Hx Tuberculosis Neurological Medical History: Denies: Hx Cerebrovascular Accident, Hx Seizures GI Medical History: Denies: Hx Hepatitis, Hx Hiatal Hernia, Hx Ulcer Infectious Medical History: Denies: Hx Hepatitis Past Surgical History: Reports: Hx Cholecystectomy - x13 years ago, Hx Oral Surgery. Denies: Hx Open Heart Surgery, Hx Pacemaker - Immunizations Immunizations up to date: No Hx Diphtheria, Pertussis, Tetanus Vaccination: Yes Review of Systems - Review of Systems Constitutional: No symptoms reported EENT: No symptoms reported Cardiovascular: No symptoms reported Respiratory: No symptoms reported Gastrointestinal: See HPI Genitourinary: No symptoms reported Male Genitourinary: No symptoms reported Musculoskeletal: No symptoms reported Skin: No symptoms reported Hematologic/Lymphatic: No symptoms reported Neurological/Psychological: No symptoms reported Physical Exam - Vital signs Vitals: Temp Pulse Resp BP Pulse Ox 99.0 F 104 H 16 150/92 H 98 09/21/20 17:30 09/21/20 17:30 09/21/20 17:30 09/21/20 17:30 09/21/20 17:30 - Notes Notes: PHYSICAL EXAMINATION: VITALS: Vitals reviewed and within normal limits. GENERAL: Well-appearing, well-nourished and in no acute distress. HEAD: Atraumatic, normocephalic. EYES: Pupils equal, round, and reactive to light, extraocular movements intact, sclera anicteric, conjunctiva are normal. ENT: Nares patent. Moist mucous membranes. Oropharynx clear without exudates. NECK: Normal range of motion, supple without lymphadenopathy. LUNGS: Breath sounds clear to auscultation bilaterally and equal. No wheezes, rales, or rhonchi. HEART: Regular, rate, and rhythm without murmurs. ABDOMEN: Soft abdomen with normoactive bowel sounds. LLQ tenderness. No guarding, no rebound. No masses appreciated. EXTREMITIES: Normal range of motion, no pitting or edema. No cyanosis. NEUROLOGICAL: No focal neurological deficits. Moves all extremities spontaneously and on command. PSYCH: Normal mood, normal affect. SKIN: Warm, Dry, normal turgor, no rashes or lesions noted. Course - Re-evaluation Re-evalutation: Patient is a 44-year-old male with a history of SBO and HTN who presents with left lower quadrant abdominal pain that began last night. Vital signs are within normal limits. On exam, left lower quadrant tenderness with normal bowel sounds in all 4 quadrants. CBC, CMP, UA, and lipase are all unremarkable and within normal limits. CT abdomen/pelvis shows acute diverticulitis of the distal descending colon. Patient will started on antibiotics. CT shows no perforation or abscess. Patient is able to tolerate oral intake here in the emergency department. Return precautions and follow up instructions given. Patient understands and is in agreement with the plan. Patient will be discharged home. - Vital Signs Vital signs: Temp Pulse Resp BP Pulse Ox 98.1 F 84 17 120/79 96 09/22/20 01:51 09/22/20 01:51 09/22/20 01:51 09/22/20 01:51 09/22/20 01:51 - Laboratory Results Result Diagrams: 09/21/20 17:52 09/21/20 17:52 Laboratory Results Interpreted: 09/21/20 09/21/20 17:52 17:52 Total Bilirubin 1.4 H Urine Ketones TRACE H Critical Laboratory Results Reviewed: No Critical Results - Radiology Results Radiology Results Interpreted: Abdomen/Pelvis CT 09/21/20 20:15 IMPRESSION: Acute diverticulitis of the distal descending colon. Critical Radiology Results Reviewed: No Critical Results Discharge - Discharge Clinical Impression: Diverticulitis large intestine Qualifiers: Diverticulitis bleeding: without bleeding Diverticulitis complication: without perforation or abscess Qualified Code(s): K57.32 - Diverticulitis of large intestine without perforation or abscess without bleeding Abdominal pain Qualifiers: Abdominal location: left lower quadrant Qualified Code(s): R10.32 - Left lower quadrant pain Condition: Stable Disposition: HOME, SELF-CARE Additional Instructions: You were seen today for focal pain in your left lower quadrant. Your labs, exam, and imaging suggest a diagnosis of diverticulitis. This is an inflam mation of a part of your colon. You are being started on antibiotics to treat this infection and inflammation. Please take all of them as directed and complete them even if your symptoms resolve. Please follow-up with your primary care physician within the next 48 hours. Return to the emergency department immediately if you develop worsening pain, persistent vomiting, began having bloody stools, develop a fever of greater than 101F, or have any other symptoms that are concerning to you. Prescriptions: Ondansetron [Zofran Odt 4 mg Tablet] 1 - 2 tab PO Q4HP PRN #15 tab.rapdis PRN Reason: Ciprofloxacin HCl [Cipro 500 mg Tablet] 500 mg PO BID 10 Days #20 tablet Metronidazole [Flagyl 500 mg Tablet] 500 mg PO TID 10 Days #30 tablet Hydrocodone/Acetaminophen [[place] 5-325 mg Tablet] 1 - 2 tab PO Q6 PRN #12 tablet PRN Reason: Referrals: [facility] [Provider Group] - Follow up as needed
[2020-09-22] MEDS ORDERED: METRONIDAZOLE 500 MG TABLET PO ONE (01:29)
[2020-09-22] MEDS ORDERED: HYDROCODONE/ACETAMINOPHEN 10-325 MG TABLET PO ONE (01:29)
[2020-09-22] MEDS ORDERED: CIPROFLOXACIN HCL 500 MG TABLET PO ONE (01:29)
[2020-09-22 01:53] VITALS: BP 120/79
== END 2020-09-22 01:51 | disposition home or self-care (01) ==
LOC: ER 17:28
DX: K57.32 Diverticulitis of large intestine without perforation or abscess without bleeding (principal); R10.32 Left lower quadrant pain; R50.9 Fever, unspecified; Z79.899 Other long term (current) drug therapy; F17.200 Nicotine dependence, unspecified, uncomplicated
CPT/HCPCS: 99285; 96361; 96374; 96375; 36415; 83690; 85025; 80053; 81001; 74177; J2270; J2405; J7030